=== PATIENT | female | born 1935 | race Caucasian/White ===

== ENCOUNTER 2017-12-17 03:23 | Emergency (ER) | payer MEDICARE, OTHER ==
[2017-12-17 03:56] LABS: #Eosinphils 0.1 thou/uL (0.0-0.7); #Lymphocytes 1.4 thou/uL (1.20-3.40); #Monocytes 0.4 thou/uL (0.11-0.59); #Neutrophils 6.4 thou/uL (1.40-6.50); %Basophils 0.3 % (0.0-1.0); %Eosinophils 0.8 % (0.0-10.0); %Lymphocytes 17.3 % (21.0-51.0); %Monocytes 4.3 % (0.0-10.0); %Neutrophils 77.4 % (42.0-75.0); Hemoglobin 10.3 g/dL (12.0-16.0); Mean Corpuscular HGB CONC 33.1 g/dL (32.0-36.0); Mean Corpuscular Hemoglobin 30.6 pg (27.0-31.0); Mean Corpuscular Volume 92.4 fl (81.0-99.0); Mean Platelet Volume 7.8 fL (7.4-10.4); Platelet Count 159 thou/uL (130-400); RBC Distribution Width 12.6 % (11.5-14.5); Red Blood Cell (RBC) Count 3.37 mill/uL (4.20-5.40); White Blood Cell (WBC) Count 8.3 thou/uL (4.8-10.8)
[2017-12-17 04:21] LABS: CKMB 2.7 ng/mL (0-6.6); Troponin I 0.015 ng/mL (< 0.028)
[2017-12-17 04:24] LABS: ALT (SGPT) 19 U/L (8-55); AST (SGOT) 38 U/L (5-34); Albumin 3.6 g/dL (3.4-4.8); Alkaline Phosphatase 108 U/L (40-150); Anion Gap 14 mmol/L (10-20); BUN (Urea Nitrogen) 35 mg/dL (9.8-20.1); Bilirubin, Total 0.2 mg/dL (0.2-1.2); Calc. Creatinine Clearance 0 mL/min (70-130); Calcium 9.9 mg/dL (7.8-10.44); Carbon Dioxide 24 mmol/L (23-31); Chloride 105 mmol/L (98-107); Estimated GFR-MDRD 50; Globulin 3.4 g/dL (2.4-3.5); Glucose 168 mg/dL (83-110); Lipase 31 U/L (8-78); Potassium 4.5 mmol/L (3.5-5.1); Sodium 138 mmol/L (136-145)
[2017-12-17] MEDS ORDERED: Ziprasidone 20 MG VIAL ONE (04:46)
[2017-12-17] MEDS ORDERED: Water For Inject, Bacteriostat 30 ML ONE (04:46)
--- NOTE | 2017-12-17 08:02 | RAD ---
ABDOMEN 2 VIEWS WITH 1 VIEW CHEST: Date: )12/17/17 HISTORY: Chest and abdominal pain. COMPARISON: None. FINDINGS: Lungs are slightly hyperinflated. There is some scarring in the lung bases. No pneumothorax. Dense ca lcification of the aorta. Cardiac silhouette is within normal limits. No displaced rib fracture. On the decubitus view, there is no free air under the peritoneal lining. No dilated air-filled loops of large or small bowel. There appears to be a calcified aortic aneurysm, infrarenal. IMPRESSION: 1. No acute intrathoracic or intraabdominal abnormality. 2. Possible splenomegaly. 3. Calcified aortic aneurysm. POS: [facility]
--- NOTE | 2017-12-18 18:15 | EKG ---
Test Reason : Blood Pressure : / mmHG Vent. Rate : 093 BPM Atrial Rate : 093 BPM P-R Int : 148 ms QRS Dur : 122 ms QT Int : 402 ms P-R-T Axes : 006 -85 057 degrees QTc Int : 499 ms Sinus rhythm with sinus arrhythmia Left axis deviation Anterior infarct , age undetermined Abnormal ECG Confirmed by MAHENDRA SHELTON D.O. ([id number]), editorial manager CHAD LOUIS ([id number]) on 12/18/2017 6:14:53 PM Referred By: Confirmed By:MAHENDRA SHELTON D.O.
== END 2017-12-17 05:50 | disposition home or self-care (01) ==
LOC: ERS 03:23
DX: R45.1 Restlessness and agitation (principal); E78.5 Hyperlipidemia, unspecified; E11.9 Type 2 diabetes mellitus without complications; I10 Essential (primary) hypertension; M19.90 Unspecified osteoarthritis, unspecified site; F31.9 Bipolar disorder, unspecified; F20.9 Schizophrenia, unspecified; Z79.82 Long term (current) use of aspirin; Z79.899 Other long term (current) drug therapy
CPT/HCPCS: 36415; 74022; 80053; 82553; 83690; 84484; 85025; 93005; 96372; J3486

== ENCOUNTER 2017-12-23 20:40 | Inpatient (IN) | payer MEDICARE, MEDICAID ==
[2017-12-23 21:42] LABS: Bilirubin Negative (Negative); Blood, Urine Negative (Negative); Clarity CLOUDY (Clear); Glucose, Urine (Dipstick) Negative (Negative); Leukocyte Negative (Negative); Nitrite Negative (Negative); Protein, Urine (Dipstick) Negative (Neg-Trace); Specific Gravity, Urine 1.026 (1.002-1.036); Urobilinogen 0.2 mg/dL (0.2-1.0); pH, Urine 5.5 (5.0-9.0)
[2017-12-23 22:14] LABS: #Lymphocytes 2.5 thou/uL (1.20-3.40); #Monocytes 0.7 thou/uL (0.11-0.59); #Neutrophils 9.3 thou/uL (1.40-6.50); %Basophils 0.2 % (0.0-1.0); %Eosinophils 0.3 % (0.0-10.0); %Lymphocytes 19.9 % (21.0-51.0); %Monocytes 5.3 % (0.0-10.0); %Neutrophils 74.4 % (42.0-75.0); Hemoglobin 10.3 g/dL (12.0-16.0); Mean Corpuscular HGB CONC 31.9 g/dL (32.0-36.0); Mean Corpuscular Hemoglobin 30.1 pg (27.0-31.0); Mean Corpuscular Volume 94.4 fl (81.0-99.0); Mean Platelet Volume 8.2 fL (7.4-10.4); Platelet Count 185 thou/uL (130-400); RBC Distribution Width 13.3 % (11.5-14.5); Red Blood Cell (RBC) Count 3.41 mill/uL (4.20-5.40); White Blood Cell (WBC) Count 12.5 thou/uL (4.8-10.8)
[2017-12-23 22:27] LABS: ALT (SGPT) 7 U/L (8-55); AST (SGOT) 11 U/L (5-34); Albumin 3.5 g/dL (3.4-4.8); Alkaline Phosphatase 89 U/L (40-150); Anion Gap 14 mmol/L (10-20); BUN (Urea Nitrogen) 28 mg/dL (9.8-20.1); Bilirubin, Total 0.5 mg/dL (0.2-1.2); Calc. Creatinine Clearance 0 mL/min (70-130); Carbon Dioxide 22 mmol/L (23-31); Chloride 109 mmol/L (98-107); Estimated GFR-MDRD 45; Glucose 161 mg/dL (83-110); Potassium 4.3 mmol/L (3.5-5.1); Protein, Total 6.5 g/dL (6.0-8.3); Sodium 141 mmol/L (136-145)
[2017-12-23 22:32] LABS: CKMB 0.6 ng/mL (0-6.6); Troponin I 0.023 ng/mL (< 0.028)
--- NOTE | 2017-12-23 22:35 | RAD ---
CHEST ONE VIEW: 12/23/17 HISTORY: 82-year-old female with altered mental status. Fever to 101.5. Monitor leads overlie the chest. There are some questionable minimal parenchymal changes in the later al aspect of the right lower lobe which appear to be new when compared to the prior study of 12/17/17. This could represent some minimal developing pneumonia or pneumonitis. Heart size is within normal l imits. Atherosclerosis of the aorta. Biapical pleural thickening. Minimal bilateral costophrenic angl e blunting. IMPRESSION: Possible minimal or early parenchymal change in the lateral aspect of the right lower lobe which coul d represent some minimal early pneumonia. Stable bilateral costophrenic angle blunting. Atheroscleros is of the aorta with some ectasia. Stable biapical pleural thickening. No evidence for overt edema. POS: [facility]
[2017-12-24] MEDS ORDERED: Ondansetron ODT 4 MG TAB SL PRN (01:27)
[2017-12-24] MEDS ORDERED: Acetaminophen 325 MG TAB PO PRN (01:27)
[2017-12-24] MEDS ORDERED: Ondansetron HCl/PF 4 MG/2 ML Vial IVP PRN (01:27)
[2017-12-24] MEDS ORDERED: Furosemide 20 MG TAB PO PRN (02:04)
[2017-12-24] MEDS: Sodium Chloride 0.9% 1,000 ML IV SCH ×3 (02:13→23:25)
[2017-12-24] MEDS ORDERED: Dextrose 50% Abboject 50 ML SYRINGE SLOW IVP PRN (02:23)
[2017-12-24] MEDS ORDERED: Dextrose 5% in Water 1,000 ML IV PRN (02:23)
--- NOTE | 2017-12-24 04:46 | HP ---
DATE OF ADMISSION: 12/23/2017 ADMITTING PHYSICIAN: Dr. Herson Diaz. PRIMARY CARE PHYSICIAN: Dr. Vo. CHIEF COMPLAINT: Altered mental status and hypoxemia. HISTORY OF PRESENT ILLNESS: Patient is an 82-year-old female who resides in [facility]. She has baseline dementia and bipolar disease. Patient was brought in after the fpc staff n oticed that she seemed confused. EMS was notified. When they arrived to evaluate the patient, she r eportedly had an O2 saturation of 88% and a temperature of 101.4 degrees Fahrenheit. Patient denies any complaints during my interview, although once again her mental status is somewhat altered and she has baseline mental illness. REVIEW OF SYSTEMS: The following complete review of systems was negative, unless otherwise mentioned in the HPI or below: Constitutional: Weight loss or gain, sense of well-being, ability to conduct usual activities, exercise tolerance. Skin/Breast: Rash, itching, changes in hair growth or loss, n ail changes, breast lumps, tenderness, swelling, nipple discharge. Eyes: Vision, double vision, tea ring, blind spots, pain. ENT/Mouth: Headaches (location, time of onset, duration, precipitating fac tors), vertigo, lightheadedness, injury. Vision, double vision, tearing, blind spots, pain, nose blee ding, colds, obstruction, discharge, dental difficulties, gingival bleeding, dentures, neck stiffness , pain, tenderness, masses in thyroid or other areas. Cardiovascular: Precordial pain, substernal d istress, palpitations, syncope, dyspnea on exertion, orthopnea, nocturnal paroxysmal dyspnea, edema, cyanosis, hypertension, heart murmurs, varicosities, phlebitis, claudication. Respiratory: Pain, sh ortness of breath, wheezing, stridor, cough, hemoptysis, fever or night sweats. Gastrointestinal: P oor appetite, dysphagia, indigestion, abdominal pain, heartburn, eructation, nausea, vomiting, hemate mesis, jaundice, constipation, or diarrhea, abnormal stools (dany-colored, tarry, bloody, greasy, fou l smelling), flatulence, hemorrhoids, recent changes in bowel habits. Genitourinary: Urgency, frequ ency, dysuria, nocturia, hematuria, polyuria, oliguria, unusual (or change in) color of urine, stones , hesitancy, change in size of stream, dribbling, acute retention or incontinence, libido, potency. Musculoskeletal: Pain, swelling, redness or heat of muscles or joints, limitation, of motion, muscul ar weakness, atrophy, cramps. Neurologic/Psychiatric: Convulsions, paralyzes, tremor, incoordinatio n, paresthesias, difficulties with memory of speech, sensory or motor disturbances, or muscular coord ination (ataxia, tremor), emotional problems, anxiety, depression, previous psychiatric care, unusual perceptions, hallucinations. Allergy/Immunologic: Skin rash, anemia, bleeding tendency, polydipsia , polyuria, intolerance to heat or cold. PAST MEDICAL HISTORY: Dyslipidemia, vitamin D deficiency, legally blind, lupus, diabetes type 2, hyp ertension, osteoarthritis, history of falls, esophagitis, dyspepsia, insomnia. PSYCHIATRIC HISTORY: Bipolar disease, schizophrenia, depression. SOCIAL HISTORY: Patient lives in [facility]. No drugs. No alcohol, no tobacco. FAMILY HISTORY: Noncontributory to this case. HOME MEDICATIONS: Include Ditropan 5 mg once a day, Namenda 10 mg b.i.d., Risperdal 25 mg monthly, t razodone 200 mg once a day, aspirin 81 mg once a day, lactobacillus acidophilus 1 capsule per day, ir on sulfate 325 once a day, vitamin B12 of 5000 mcg every day, Ativan 0.5 mg once a day, multivitamin once a day, Colace 100 once a day, folic acid 0.4 mg once a day, Lasix 20 mg as needed, potassium 10 mEq daily, Remeron 15 mg 1/2 tablet once a day, Seroquel 200 mg at bedtime. ALLERGIES: Patient is known to be allergic to PENICILLIN, STRAWBERRIES. PHYSICAL EXAMINATION: VITAL SIGNS: Blood pressure 119/73, pulse 96, respirations 18, temperature 99.0, satting 95% on room air. GENERAL: She is in no acute distress, pleasant, cooperative, pleasantly demented, oriented to person only responsive to verbal stimuli. HEAD: Normocephalic, atraumatic. EYE: Extraocular muscles intact. Conjunctivae normal. Sclerae normal. ENT: Normal external ear exam. Oral mucosa dry with discharge and dry mucous. NECK: Supple, trachea midline. RESPIRATORY: Breath sounds diminished in the lower lobes. No rhonchi, no wheezes. ABDOMEN: Nontender, nondistended. EXTREMITIES: No clubbing, cyanosis, or edema. LABORATORY DATA AND IMAGES: CBC shows a white count of 12.5, hemoglobin 10.3, hematocrit 32.2, plate lets 185. Chemistry shows sodium 141, potassium 4.3, chloride 109, CO2 of 22, BUN 28, creatinine 1.1 5, glucose 161, lactic acid 1.2. CK-MB 0.6, troponin I 0.02. BNP 64.4, albumin 3.5. Urinalysis yel low, cloudy, negative leukocytes, negative nitrites. ASSESSMENT AND PLAN: 1. Altered mental status. 2. Pneumonia. 3. Dementia. 4. Bipolar disease. PLAN: Patient will be admitted to medical kaur. She will be treated with the appropriate antimicrob ials for her community-acquired pneumonia. We will provide fluid resuscitation as needed. We will c ontinue her home medication regimen to manage her chronic medical conditions. VTE prophylaxis will b e on Lovenox.
[2017-12-24 05:17] VITALS: BMI 23.2
[2017-12-24] MEDS: HumaLOG 300 UNITS/3 ML VIAL SC PRN (06:23)
[2017-12-24] MEDS: Folic Acid 1 MG TAB PO SCH (08:28)
[2017-12-24] MEDS: Potassium Chloride 10 MEQ TAB PO SCH (08:28)
[2017-12-24] MEDS: Aspirin 81 mg Enteric Coated Tablet PO SCH (08:29)
[2017-12-24] MEDS: Oxybutynin ER 5 MG TAB PO SCH (08:29)
[2017-12-24] MEDS: Ferrous Sulfate 325 MG TAB PO SCH (08:29)
[2017-12-24] MEDS: traZODone HCl 150 MG TAB PO SCH ×2 (08:29→21:31)
[2017-12-24] MEDS: Cyanocobalamin (Vitamin B-12) 1,000 MCG TAB PO SCH (08:30)
[2017-12-24] MEDS: Lorazepam 0.5 MG TAB PO SCH ×2 (08:30→21:32)
[2017-12-24] MEDS: Lactinex Tablet PO SCH (08:31)
[2017-12-24] MEDS: Docusate 100 MG CAP PO SCH (08:31)
[2017-12-24] MEDS: Ascorbic Acid 500 mg Chewable Tablet PO SCH (08:31)
[2017-12-24] MEDS: Enoxaparin Sodium 30 MG/0.3 ML SYRINGE SC SCH (08:32)
[2017-12-24] MEDS ORDERED: Prevnar 13-Val Conj/PF 0.5 ML SYRINGE IM ONE (09:00)
--- NOTE | 2017-12-24 15:22 | PQF ---
CLINICAL DOCUMENTATION IMPROVEMENT CLARIFICATION FORM: ICD-10 Updated PLEASE DO AN ADDENDUM TO THE PROGRESS NOTE WITH ANY DOCUMENTATION UPDATES OR ADDITIONS AND CARRY THROUGH TO DC SUMMARY. THANK YOU. DATE: 12/24/17 ATTN: DR. MCKINNEY Please exercise your independent, professional judgment in responding to the clarification form. Clinical indicators are provided on the bottom of this form for your review Please check appropriate box(es): [ ] Sepsis due to: (Pna, UTI, gangrenous gall bladder, etc.) Due to: [ ] Device (please specify) [ ] Implant [ ] Graft [ ] Infusion [ ] SIRS due to non-infectious process (please specify etiology) [ ] with organ dysfunction [ ] without organ dysfunction [ ] Severe sepsis with acute organ dysfunction of: (Examples: respiratory failure, encephalopathy, acute kidney failure, other) [ ] Septic Shock [ ] Localized infection without sepsis [ ] Other diagnosis [ ] Unable to determine In addition, please specify: Present on Admission (POA): [ ] Yes [ ] No [ ] Unable to determine For continuity of documentation, please document condition throughout progress notes and discharge summary. Thank You. CLINICAL INDICATORS - SIGNS / SYMPTOMS / LABS ALTERED MENTAL STATUS TEMP 101.4 (ER ER REPORT) WBC 12.5 PULSE 101 RISKS: PNEUMONIA TREATMENT: IV LEVAQUIN (ER) IV VANCOMYCIN (ER) SERIAL LABS (This form is maintained as a part of the permanent medical record) 2014 [employer]. All Rights Reserved [email or web address] Office: [phone] [facility]
[2017-12-24] MEDS: Mirtazapine 15 MG TAB PO SCH (21:31)
[2017-12-24] MEDS: traZODone HCl 50 MG TAB PO SCH (21:32)
[2017-12-24] MEDS: Doxycycline 100 MG CAP PO SCH (21:34)
[2017-12-25] MEDS ORDERED: Acetaminophen 325 MG TAB PO PRN (02:56)
[2017-12-25] MEDS: Saccharomyces boulardii 250 MG CAP PO SCH (08:30)
[2017-12-25] MEDS: Cyanocobalamin (Vitamin B-12) 1,000 MCG TAB PO SCH (08:30)
[2017-12-25] MEDS: Ferrous Sulfate 325 MG TAB PO SCH (08:31)
[2017-12-25] MEDS: Folic Acid 1 MG TAB PO SCH (08:32)
[2017-12-25] MEDS: traZODone HCl 150 MG TAB PO SCH ×2 (08:32→21:22)
[2017-12-25] MEDS: Potassium Chloride 10 MEQ TAB PO SCH (08:33)
[2017-12-25] MEDS: Ascorbic Acid 500 mg Chewable Tablet PO SCH (08:34)
[2017-12-25] MEDS: Lactinex Tablet PO SCH (08:34)
[2017-12-25] MEDS: Aspirin 81 mg Enteric Coated Tablet PO SCH (08:34)
[2017-12-25] MEDS: Lorazepam 0.5 MG TAB PO SCH ×2 (08:34→21:39)
[2017-12-25] MEDS: Doxycycline 100 MG CAP PO SCH (08:36)
[2017-12-25] MEDS: Enoxaparin Sodium 30 MG/0.3 ML SYRINGE SC SCH (08:56)
[2017-12-25] MEDS: Docusate 100 MG CAP PO SCH (08:56)
[2017-12-25 10:31] LABS: #Lymphocytes 1.5 thou/uL (1.20-3.40); #Monocytes 0.3 thou/uL (0.11-0.59); #Neutrophils 6.1 thou/uL (1.40-6.50); %Basophils 0.2 % (0.0-1.0); %Eosinophils 0.6 % (0.0-10.0); %Lymphocytes 18.5 % (21.0-51.0); %Monocytes 4.2 % (0.0-10.0); %Neutrophils 76.5 % (42.0-75.0); Hemoglobin 9.1 g/dL (12.0-16.0); Mean Corpuscular HGB CONC 32.1 g/dL (32.0-36.0); Mean Corpuscular Hemoglobin 30.4 pg (27.0-31.0); Mean Corpuscular Volume 94.8 fl (81.0-99.0); Mean Platelet Volume 8.3 fL (7.4-10.4); Platelet Count 147 thou/uL (130-400); RBC Distribution Width 13.1 % (11.5-14.5); White Blood Cell (WBC) Count 7.9 thou/uL (4.8-10.8)
[2017-12-25 10:42] LABS: Albumin 3.1 g/dL (3.4-4.8); Anion Gap 11 mmol/L (10-20); BUN (Urea Nitrogen) 17 mg/dL (9.8-20.1); BUN/Creatinine Ratio 14.91; Calc. Creatinine Clearance 41 mL/min (70-130); Carbon Dioxide 24 mmol/L (23-31); Chloride 108 mmol/L (98-107); Estimated GFR-MDRD 46; Glucose 274 mg/dL (83-110); Magnesium 1.7 mg/dL (1.6-2.6); Potassium 4.2 mmol/L (3.5-5.1); Sodium 139 mmol/L (136-145)
[2017-12-25 10:48] LABS: Phosphorus 1.9 mg/dL (2.3-4.7)
[2017-12-25] MEDS: Oxybutynin ER 5 MG TAB PO SCH (10:52)
--- NOTE | 2017-12-25 12:29 | RAD ---
CHEST 1 VIEW: HISTORY: Dyspnea. Pneumonia. Followup. COMPARISON: 12/23/17. FINDINGS: Cardiac silhouette is magnified by projection. The patient is rotated leftward. Infiltrate at the r ight base has progressed since the prior study. No evidence of pneumothorax. IMPRESSION: Worsening right basilar infiltrate. Continued radiographic followup after medical treatment is keli andersd. POS: [facility]
[2017-12-25] MEDS: Sodium Chloride 0.9% 1,000 ML IV SCH (13:13)
--- NOTE | 2017-12-25 16:03 | PDOC.PN ---
- Subjective Encounter Start Date: 12/25/17 Encounter Start Time: 16:01 Patient seen and examined. No new complaints. No overnight events. Agitated. - Objective MAR Reviewed: Yes Vital Signs & Weight: Vital Signs (12 hours) Temp Pulse Resp BP Pulse Ox 12/25/17 08:00 99.1 F 70 16 98 12/25/17 07:42 99.1 F 70 16 148/74 H 98 I&O: 12/24/17 12/25/17 12/26/17 06:59 06:59 06:59 Intake Total 1200 Balance 1200 Result Diagrams: 12/25/17 10:03 12/25/17 10:03 Additional Labs: Accuchecks 12/25/17 12/24/17 12/24/17 12:04 20:49 16:27 POC Glucose 179 H 194 H 133 H Radiology Reviewed by me: Yes (CXR - worse Rt basilar infiltrate) EKG Reviewed by me: Yes (SR, LBBB) Phys Exam - Physical Examination Constitutional: NAD Confused Respiratory: no wheezing Rt basilar rales with scat rhonchi, Symmetrical Cardiovascular: RRR, no rub no heaves/pulsations Gastrointestinal: soft, non-tender, no distention, positive bowel sounds Musculoskeletal: no edema Neurological: moves all 4 limbs Neuro/Psych - cannot assess due to sedation Dx/Plan - Plan plan discussed w/ family (sister), DVT proph w/lovenox, DVT proph w/SCDs IMPRESSION: 1. Sepsis with acute organ dysfunction due to Pneumonia ?Pneumococcus vs Aspiration 2. Toxic Metabolic Encephalopathy 3. Alzheimer dementia 4. Swallow dysfunction 5. Dehydration 6. 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 * Add nebs/Pulmicort * Replace Phosphorus * Cont sliding scale Review of Systems - Review of Systems Other: Cannot obtain due to dementia - Medications/Allergies Allergies/Adverse Reactions: Allergies Allergy/AdvReac Type Severity Reaction Status Date / Time strawberry [[place]] Allergy Unknown Verified 12/24/17 01:55 Penicillins Allergy Verified 12/24/17 01:55 Medications: Current Medications Acetaminophen (Tylenol) 650 mg PO Q6H PRN PRN Reason: Fever >101 Acidophilus (Floranex) 1 tab PO DAILY [facility] Last Admin: 12/25/17 08:34 Dose: 1 tab Ascorbic Acid (Vitamin C) 500 mg PO DAILY [facility] Last Admin: 12/25/17 08:34 Dose: 500 mg Aspirin (Ecotrin) 81 mg PO DAILY [facility] Last Admin: 12/25/17 08:34 Dose: 81 mg Cholecalciferol (Vitamin D3) 5,000 units PO DAILY [facility] Last Admin: 12/25/17 08:34 Dose: 5,000 units Cyanocobalamin (Vitamin B-12) 500 mcg PO DAILY [facility] Last Admin: 12/25/17 08:30 Dose: 500 mcg Dextrose/Water (Dextrose 50%) 25 gm SLOW IVP PRN PRN PRN Reason: Hypoglycemia Docusate Sodium (Colace) 100 mg PO DAILY [facility] Last Admin: 12/25/17 08:56 Dose: Not Given Doxycycline Hyclate (Vibramycin) 100 mg PO BID [facility] Last Admin: 12/25/17 08:36 Dose: 100 mg Enoxaparin Sodium (Lovenox) 30 mg SC 0900 [facility] Last Admin: 12/25/17 08:56 Dose: Not Given Ferrous Sulfate (Feosol) 325 mg PO QAM-[facility] Last Admin: 12/25/17 08:31 Dose: 325 mg Folic Acid (Folvite) 0.5 mg PO DAILY [facility] Last Admin: 12/25/17 08:32 Dose: 0.5 mg Furosemide (Lasix) 20 mg PO DAILY PRN PRN Reason: Edema Glucagon (Glucagon) 1 mg IM PRN PRN PRN Reason: Hypoglycemia Dextrose/Water (D5w) 1,000 mls @ 0 mls/hr IV .Q0M PRN; As Directed PRN Reason: Hypoglycemia Levofloxacin 500 mg/ Device 100 mls @ 100 mls/hr IVPB 2300 [facility] Last Admin: 12/24/17 23:24 Dose: 100 mls Sodium Chloride (Normal Saline 0.9%) 1,000 mls @ 75 mls/hr IV .[id number] [facility] Stop: 12/26/17 17:31 Last Admin: 12/25/17 13:13 Dose: 1,000 mls Insulin Human Lispro (Humalog) 0 units SC .MILD SLIDING SCALE PRN PRN Reason: Mild Correctional Scale Last Admin: 12/24/17 06:23 Dose: 2 unit Lorazepam (Ativan) 0.5 mg PO BID [facility] Last Admin: 12/25/17 08:34 Dose: 0.5 mg Memantine (Namenda) 10 mg PO BID [facility] Last Admin: 12/25/17 08:35 Dose: 10 mg Mirtazapine (Remeron) 15 mg PO HS [facility] Last Admin: 12/24/17 21:31 Dose: 15 mg Miscellaneous Medication (Pharmacy To Dose) 1 each IVPB ONE PRN PRN Reason: Pharmacy to dose Stop: 01/23/18 12:51 Non-Formulary Medication (Risperidone Microspheres [Risperdal Consta]) 25 mg IM ONE [facility] Stop: 01/06/18 09:01 Non-Formulary Medication (Risperidone Microspheres [Risperdal Consta]) 25 mg IM ONE [facility] Stop: 01/20/18 09:01 Oxybutynin Chloride (Ditropan Xl) 5 mg PO DAILY [facility] Last Admin: 12/25/17 10:52 Dose: Not Given Phosphorus (Kphos Neutral) 250 mg PO BID-[facility] Quetiapine Fumarate (Seroquel) 200 mg PO [facility] Last Admin: 12/24/17 21:31 Dose: 200 mg Saccharomyces Boulardii (Florastor) 250 mg PO DAILY [facility] Last Admin: 12/25/17 08:30 Dose: 250 mg Trazodone HCl (Desyrel) 75 mg PO BID [facility] Last Admin: 12/25/17 08:32 Dose: 75 mg Trazodone HCl (Desyrel) 200 mg PO [facility] Last Admin: 12/24/17 21:32 Dose: Not Given
[2017-12-25] MEDS ORDERED: Ziprasidone 20 MG VIAL IM PRN (16:04)
[2017-12-25] MEDS: metroNIDAZOLE 500 MG in Premix Bag 1 BAG IVPB SCH (16:35)
[2017-12-25] MEDS: K-Phos Neutral 250 MG TAB PO SCH (16:41)
[2017-12-25] MEDS: Budesonide 0.5 MG/2 ML NEB INH SCH (20:11)
[2017-12-25] MEDS: Mirtazapine 15 MG TAB PO SCH (21:23)
[2017-12-25] MEDS: traZODone HCl 50 MG TAB PO SCH (21:40)
[2017-12-26] MEDS: metroNIDAZOLE 500 MG in Premix Bag 1 BAG IVPB SCH ×3 (01:25→17:39)
[2017-12-26] MEDS: Sodium Chloride 0.9% 1,000 ML IV SCH ×2 (05:51→17:45)
[2017-12-26] MEDS: HumaLOG 300 UNITS/3 ML VIAL SC PRN (05:52)
[2017-12-26] MEDS: Budesonide 0.5 MG/2 ML NEB INH SCH ×2 (07:13→19:00)
[2017-12-26] MEDS: Cyanocobalamin (Vitamin B-12) 1,000 MCG TAB PO SCH (08:35)
[2017-12-26] MEDS: Ascorbic Acid 500 mg Chewable Tablet PO SCH (08:35)
[2017-12-26] MEDS: traZODone HCl 150 MG TAB PO SCH ×2 (08:36→21:38)
[2017-12-26] MEDS: Folic Acid 1 MG TAB PO SCH (08:37)
[2017-12-26] MEDS: Lorazepam 0.5 MG TAB PO SCH ×2 (08:37→21:37)
[2017-12-26] MEDS: Aspirin 81 mg Enteric Coated Tablet PO SCH (08:38)
[2017-12-26] MEDS: Saccharomyces boulardii 250 MG CAP PO SCH (08:38)
[2017-12-26] MEDS: Ferrous Sulfate 325 MG TAB PO SCH (08:38)
[2017-12-26] MEDS: Oxybutynin ER 5 MG TAB PO SCH (08:38)
[2017-12-26] MEDS: Lactinex Tablet PO SCH (08:38)
[2017-12-26] MEDS: K-Phos Neutral 250 MG TAB PO SCH ×2 (08:40→17:44)
[2017-12-26] MEDS: Docusate 100 MG CAP PO SCH (08:40)
[2017-12-26] MEDS: Enoxaparin Sodium 30 MG/0.3 ML SYRINGE SC SCH (08:40)
--- NOTE | 2017-12-26 21:16 | PDOC.PN ---
- Subjective Encounter Start Date: 12/26/17 Encounter Start Time: 11:30 Patient seen and examined. No new complaints. No overnight events - Objective Resuscitation Status: Resuscitation Status DNR:Do Not Resuscitate MAR Reviewed: Yes Vital Signs & Weight: Vital Signs (12 hours) Temp Pulse Resp BP Pulse Ox 12/26/17 20:00 98.7 F 94 20 148/53 H 95 12/26/17 19:00 76 16 94 L I&O: 12/25/17 12/26/17 12/27/17 06:59 06:59 06:59 Intake Total 1200 1310 Balance 1200 1310 Result Diagrams: 12/25/17 10:03 12/25/17 10:03 Additional Labs: Accuchecks 12/26/17 12/26/17 12/26/17 20:40 16:28 11:56 POC Glucose 267 H 122 H 229 H 12/26/17 12/25/17 05:20 21:14 POC Glucose 158 H 198 H Phys Exam - Physical Examination Constitutional: NAD Respiratory: no wheezing, no rhonchi Coarse BS on Rt Cardiovascular: RRR, no rub Gastrointestinal: soft, non-tender, positive bowel sounds Musculoskeletal: no edema Neurological: moves all 4 limbs Dx/Plan - Plan DVT proph w/lovenox, DVT proph w/SCDs IMPRESSION: 1. Sepsis with acute organ dysfunction due to Pneumonia ?Pneumococcus vs Aspiration 2. Toxic Metabolic Encephalopathy 3. Alzheimer dementia 4. Swallow dysfunction - on modified diet 5. Dehydration - on IV fluids 6. 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 * Cont nebs/Pulmicort * DC in AM if stable/afebrile * Cont sliding scale Review of Systems - Review of Systems Other: Cannot obtain due to current mentation - Medications/Allergies Allergies/Adverse Reactions: Allergies Allergy/AdvReac Type Severity Reaction Status Date / Time strawberry [[place]] Allergy Unknown Verified 12/24/17 01:55 Penicillins Allergy Verified 12/24/17 01:55 Medications: Current Medications Acetaminophen (Tylenol) 650 mg PO Q6H PRN PRN Reason: Fever >101 Acidophilus (Floranex) 1 tab PO DAILY [facility] Last Admin: 12/26/17 08:38 Dose: 1 tab Albuterol/Ipratropium (Duoneb) 3 ml NEB [id number] [facility] Last Admin: 12/26/17 19:01 Dose: 3 ml Albuterol/Ipratropium (Duoneb) 3 ml NEB [id number] PRN PRN Reason: SOB &/or Wheezing Ascorbic Acid (Vitamin C) 500 mg PO DAILY [facility] Last Admin: 12/26/17 08:35 Dose: 500 mg Aspirin (Ecotrin) 81 mg PO DAILY [facility] Last Admin: 12/26/17 08:38 Dose: 81 mg Budesonide (Pulmicort Neb Solution) 0.5 mg INH BID-RT [facility] Last Admin: 12/26/17 19:00 Dose: 0.5 mg Cholecalciferol (Vitamin D3) 5,000 units PO DAILY [facility] Last Admin: 12/26/17 08:37 Dose: 5,000 units Cyanocobalamin (Vitamin B-12) 500 mcg PO DAILY [facility] Last Admin: 12/26/17 08:35 Dose: 500 mcg Dextrose/Water (Dextrose 50%) 25 gm SLOW IVP PRN PRN PRN Reason: Hypoglycemia Docusate Sodium (Colace) 100 mg PO DAILY [facility] Last Admin: 12/26/17 08:40 Dose: Not Given Ferrous Sulfate (Feosol) 325 mg PO QAM-WM [facility] Last Admin: 12/26/17 08:38 Dose: 325 mg Folic Acid (Folvite) 0.5 mg PO DAILY [facility] Last Admin: 12/26/17 08:37 Dose: 0.5 mg Furosemide (Lasix) 20 mg PO DAILY PRN PRN Reason: Edema Glucagon (Glucagon) 1 mg IM PRN PRN PRN Reason: Hypoglycemia Dextrose/Water (D5w) 1,000 mls @ 0 mls/hr IV .Q0M PRN; As Directed PRN Reason: Hypoglycemia Levofloxacin 500 mg/ Device 100 mls @ 100 mls/hr IVPB 2300 [facility] Last Admin: 12/25/17 23:15 Dose: 100 mls Metronidazole 500 mg/ Device 100 mls @ 100 mls/hr IVPB 0100,0900,1700 [facility] Last Admin: 12/26/17 17:39 Dose: 100 mls Insulin Human Lispro (Humalog) 0 units SC .MILD SLIDING SCALE PRN PRN Reason: Mild Correctional Scale Last Admin: 12/26/17 05:52 Dose: 2 unit Lorazepam (Ativan) 0.5 mg PO BID [facility] Last Admin: 12/26/17 08:37 Dose: 0.5 mg Memantine (Namenda) 10 mg PO BID [facility] Last Admin: 12/26/17 08:38 Dose: 10 mg Mirtazapine (Remeron) 15 mg PO [facility] Last Admin: 12/25/17 21:23 Dose: 15 mg Miscellaneous Medication (Pharmacy To Dose) 1 each IVPB ONE PRN PRN Reason: Pharmacy to dose Stop: 01/23/18 12:51 Non-Formulary Medication (Risperidone Microspheres [Risperdal Consta]) 25 mg IM ONE [facility] Stop: 01/06/18 09:01 Non-Formulary Medication (Risperidone Microspheres [Risperdal Consta]) 25 mg IM ONE [facility] Stop: 01/20/18 09:01 Oxybutynin Chloride (Ditropan Xl) 5 mg PO DAILY [facility] Last Admin: 12/26/17 08:38 Dose: 5 mg Phosphorus (Kphos Neutral) 250 mg PO BID-[facility] Last Admin: 12/26/17 17:44 Dose: 250 mg Quetiapine Fumarate (Seroquel) 200 mg PO [facility] Last Admin: 12/25/17 21:23 Dose: 200 mg Saccharomyces Boulardii (Florastor) 250 mg PO DAILY [facility] Last Admin: 12/26/17 08:38 Dose: 250 mg Trazodone HCl (Desyrel) 75 mg PO BID [facility] Last Admin: 12/26/17 08:36 Dose: 75 mg Trazodone HCl (Desyrel) 200 mg PO [facility] Last Admin: 12/25/17 21:40 Dose: 200 mg Ziprasidone (Geodon) 10 mg IM Q6H PRN PRN Reason: Agitation Last Admin: 12/25/17 16:39 Dose: 10 mg
[2017-12-26] MEDS: traZODone HCl 50 MG TAB PO SCH (21:38)
[2017-12-26] MEDS: Mirtazapine 15 MG TAB PO SCH (21:38)
[2017-12-27] MEDS: metroNIDAZOLE 500 MG in Premix Bag 1 BAG IVPB SCH ×2 (01:59→08:13)
[2017-12-27] MEDS: Budesonide 0.5 MG/2 ML NEB INH SCH (06:54)
[2017-12-27] MEDS: K-Phos Neutral 250 MG TAB PO SCH (08:15)
[2017-12-27] MEDS: Ferrous Sulfate 325 MG TAB PO SCH (08:15)
[2017-12-27] MEDS: Saccharomyces boulardii 250 MG CAP PO SCH (08:15)
[2017-12-27] MEDS: Lactinex Tablet PO SCH (08:15)
[2017-12-27] MEDS: traZODone HCl 150 MG TAB PO SCH (08:17)
[2017-12-27] MEDS: Ascorbic Acid 500 mg Chewable Tablet PO SCH (08:18)
[2017-12-27] MEDS: Oxybutynin ER 5 MG TAB PO SCH (08:19)
[2017-12-27] MEDS: Folic Acid 1 MG TAB PO SCH (08:19)
[2017-12-27] MEDS: Cyanocobalamin (Vitamin B-12) 1,000 MCG TAB PO SCH (08:19)
[2017-12-27] MEDS: Docusate 100 MG CAP PO SCH (08:20)
[2017-12-27] MEDS: Lorazepam 0.5 MG TAB PO SCH (08:20)
[2017-12-27] MEDS: Aspirin 81 mg Enteric Coated Tablet PO SCH (08:20)
[2017-12-27 16:01] VITALS: BP 104/59; TEMP 98.3
--- NOTE | 2017-12-27 19:22 | DIS ---
DATE OF ADMISSION: 12/23/2017 DATE OF DISCHARGE: 12/27/2017 DISCHARGE DISPOSITION: half-way. ALLERGIES: The patient is allergic to PENICILLIN and STRAWBERRIES. The patient was seen and examined on the day of discharge. Denies any new complaints. Overall, symp tomatically feels better. DISCHARGE MEDICATIONS: 1. Levaquin 500 mg daily for 5 days. 2. Flagyl 500 mg every 8 hourly for the next 5 days. 3. K-Phos 250 mg twice a day for 1 week. 4. Other home medications were resumed. DISCHARGE INSTRUCTIONS: 1. Repeat base met with phosphorus after 1 week is recommended. Primary care physician is advised t o follow. 2. Chest x-ray after 4 weeks is recommended. Primary care physician is advised to follow. INPATIENT CONSULTANTS: None. BRIEF HOSPITAL COURSE: The patient is an 82-year-old female skilled nursing resident with dementia, was brought to the hospital with altered mentation. Please refer to the history and physical dictated b ana Diaz on 12/23/2017 for further details. The patient was admitted to the medical floor with a diagnosis of toxic metabolic encephalopathy seco ndary to pneumonia, suspected aspiration. She was placed on Levaquin. A chest x-ray on admission sh owed possible early parenchymal changes in the right lower lobe. Repeat chest x-ray 48 hours later s howed worsening right basilar infiltrate. For this reason, Flagyl was added. The patient has been a febrile over the last 24 hours. She was also evaluated by Speech Therapy and her diet has been modif ied. She will continue antibiotics for another 5 days. No changes in her home medications were made . FINAL DIAGNOSES: 1. Sepsis with acute organ dysfunction secondary to pneumonia, suspected aspiration versus pneumococ cus. 2. Toxic metabolic encephalopathy. 3. Alzheimer dementia. 4. Swallow dysfunction, on modified diet. 5. Dehydration. The patient received IV fluids during this hospital stay. 6. Diabetes mellitus type 2. 7. Legal blindness. 8. Frequent falls. 9. Deconditioning. 10. Anxiety, depression, bipolar disorder. 11. Schizophrenia. 12. Chronic kidney disease stage 3. 13. Hypertension. 14. Hypophosphatemia. Phosphorus on the 3rd was 1.9. SIGNIFICANT LABORATORIES: 1. Urinalysis was negative. Creatinine on admission was 1.15 with a BUN of 21. The BUN normalized after 48 hours. 2. Lactic acid was 1.2. 3. Troponin was negative. 4. Influenzae A and B testing was negative. Please note blood cultures were not done on admission. Total time coordinating the discharge of this patient was 33 minutes.
[2018-01-06] MEDS ORDERED: RISPERIDONE MICROSPHERES 25 MG IM SCH (09:00)
[2018-01-20] MEDS ORDERED: RISPERIDONE MICROSPHERES 25 MG IM SCH (09:00)
== END 2017-12-27 16:50 | DRG 871 ==
LOC: ERS 20:40 → T4-B 23:12
PROVIDERS: ADMIT Internal Medicine Addiction Medicine; ATTEND Internal Medicine Addiction Medicine
DX: A41.9 Sepsis, unspecified organism (principal); J69.0 Pneumonitis due to inhalation of food and vomit; G93.41 Metabolic encephalopathy; J13 Pneumonia due to Streptococcus pneumoniae; R13.10 Dysphagia, unspecified; E83.39 Other disorders of phosphorus metabolism; G30.9 Alzheimer's disease, unspecified; N18.3 Chronic kidney disease, stage 3 (moderate); E86.0 Dehydration; F02.80 Dementia in other diseases classified elsewhere, unspecified severity, without behavioral disturbance, psychotic disturbance, mood disturbance, and anxiety; F20.9 Schizophrenia, unspecified; R65.20 Severe sepsis without septic shock; E55.9 Vitamin D deficiency, unspecified; Z66 Do not resuscitate; E78.5 Hyperlipidemia, unspecified; F31.9 Bipolar disorder, unspecified; M19.90 Unspecified osteoarthritis, unspecified site; H54.8 Legal blindness, as defined in USA; Z88.0 Allergy status to penicillin; Z91.018 Allergy to other foods; F41.9 Anxiety disorder, unspecified; I12.9 Hypertensive chronic kidney disease with stage 1 through stage 4 chronic kidney disease, or unspecified chronic kidney disease; Z91.81 History of falling
CPT/HCPCS: 36415; 36416; 51701; 71045; 80053; 80069; 81003; 82553; 83605; 83735; 83880; 84484; 85025; 90471; 90670; 93005; 94640; 96365; 96367; A4353; G0009; G8996-GN-CK; G8997-GN-CJ; J1650; J1956; J3370; J3486; J7620; J7626

== ENCOUNTER 2019-10-15 13:22 | Inpatient (IN) | payer MEDICARE, MEDICAID ==
[~2019-10-15 13:22] MED LIST: Iopamidol-370 76% 500 ML 1 ML ONE
--- NOTE | 2019-10-15 13:55 | RAD ---
PORTABLE UPRIGHT FRONTAL CHEST RADIOGRAPH: 10/15/2019 HISTORY: Altered mental status. Cough. Fever. COMPARISON: 12/25/2017 FINDINGS: The right lung appears clear. No pneumothorax is seen. There is hazy increased density in the left ba se with partial obscuration of the left hemidiaphragm, which may represent left basilar infiltrate or volume loss. There is atherosclerotic calcification of the thoracic aorta. IMPRESSION: Hazy nonspecific increased density in the left lung base, as detailed above. Recommend PA and lateral imaging of the chest. POS: [facility]
[2019-10-15 14:29] LABS: #Eosinphils 0.1 thou/uL (0.0-0.7); #Lymphocytes 2.5 thou/uL (1.20-3.40); #Monocytes 0.4 thou/uL (0.11-0.59); #Neutrophils 6.3 thou/uL (1.40-6.50); %Basophils 0.1 % (0.0-1.0); %Eosinophils 0.9 % (0.0-10.0); %Lymphocytes 26.8 % (21.0-51.0); %Monocytes 4.5 % (0.0-10.0); %Neutrophils 67.6 % (42.0-75.0); Hemoglobin 12.4 g/dL (12.0-16.0); Mean Corpuscular HGB CONC 33.1 g/dL (32.0-36.0); Mean Corpuscular Hemoglobin 31.2 pg (27.0-31.0); Mean Corpuscular Volume 94.3 fL (78.0-98.0); Mean Platelet Volume 8.3 fL (7.4-10.4); Platelet Count 152 thou/uL (130-400); RBC Distribution Width 12.3 % (11.5-14.5); Red Blood Cell (RBC) Count 3.98 mill/uL (4.20-5.40); White Blood Cell (WBC) Count 9.3 thou/uL (4.8-10.8)
[2019-10-15 14:54] LABS: ALT (SGPT) 8 U/L (8-55); AST (SGOT) 9 U/L (5-34); Albumin 3.8 g/dL (3.4-4.8); Alkaline Phosphatase 121 U/L (40-110); Anion Gap 18 mmol/L (10-20); BUN (Urea Nitrogen) 24 mg/dL (9.8-20.1); Bilirubin, Total 0.8 mg/dL (0.2-1.2); CK (CPK) 71 U/L (29-168); Calc. Creatinine Clearance 0 mL/min (70-130); Calcium 9.9 mg/dL (7.8-10.44); Carbon Dioxide 23 mmol/L (23-31); Chloride 102 mmol/L (98-107); Estimated GFR-MDRD 31; Globulin 3.9 g/dL (2.4-3.5); Glucose 295 mg/dL (83-110); Lipase 12 U/L (8-78); Protein, Total 7.7 g/dL (6.0-8.3); Sodium 139 mmol/L (136-145)
[2019-10-15] MEDS ORDERED: Vancomycin HCl 1.25 GM in Sodium Chloride 0.9% 250 ML 250 ML IVPB ONE (15:00)
[2019-10-15] MEDS ORDERED: Metoprolol Tartrate 5 MG/5 ML VIAL ONE (16:04)
[2019-10-15] MEDS ORDERED: Guaifenesin DM 100-10/5 ML UDCUP PO PRN (16:57)
[2019-10-15] MEDS ORDERED: Acetaminophen 325 MG TAB PO PRN ×2 (16:57→21:53)
[2019-10-15] MEDS ORDERED: Senokot S 8.6-50 MG TAB PO PRN ×2 (16:57→21:48)
[2019-10-15] MEDS ORDERED: Bisacodyl 10 MG SUPP PR PRN ×2 (16:57→21:54)
--- NOTE | 2019-10-15 17:09 | CT ---
CTA Angio Chest W WO Con History: Fever Comparison: Radiograph same day Findings: CT angiogram chest performed after the intravenous administration of contrast. 3-D renderin g provided. No proximal segmental pulmonary arterial filling defect. The main pulmonary trunk as well as of the r ight main pulmonary arteries are mildly dilated. Heart size mildly enlarged. Reflux of contrast within the suprahepatic IVC. There is circumferential wall thickening of the upper thoracic esophagus . Mild pulmonary venous congestion. No evidence for pneumonia. Scarring in the lung apices. No pneumoth orax. No significant effusion. Sternum and manubrium are intact. Thoracic spine is unremarkable. High-grade narrowing of the celiac trunk due to the median arcuate ligament. No acute displaced rib fracture. Advanced calcifications of the aorta Impression: 1. No proximal segmental pulmonary artery filling defect. 2. Abnormal dilatation and circumferential wall thickening of the upper thoracic esophagus for which a nonemergent upper endoscopy is recommended. This may reflect esophagitis versus mass. 3. Mild portal venous congestion. 4. Reflux contrast within the suprahepatic IVC suggesting component of diastolic dysfunction and incr eased right heart pressures. 5. Narrowed celiac trunk due to the median arcuate ligament with mild poststenotic dilatation.
[2019-10-15] MEDS ORDERED: Dextrose 50% Abboject 50 ML SYRINGE SLOW IVP PRN ×2 (17:14→21:56)
[2019-10-15] MEDS ORDERED: Dextrose 5% in Water 1,000 ML IV PRN ×2 (17:14→21:56)
[2019-10-15] MEDS ORDERED: HumaLOG 300 UNITS/3 ML VIAL SC PRN ×3 (17:14→21:48)
[2019-10-15 17:31] LABS: Lactic Acid 2.5 mmol/L (0.5-2.2)
--- NOTE | 2019-10-15 17:49 | HP ---
REASON FOR ADMISSION: Sepsis and pneumonia. HISTORY OF PRESENT ILLNESS: Please note majority of this history is obtained by talking to ER physician, Dr. Ellis, prior medical records and [facility] records as the patient is confused at present. The patient apparently was sent from [facility] for shortness of breath and a temperature of 102. She also had coughing spells there. The patient is confused and does not know exactly where she is at present. She follows some verbal stimuli. She is not oriented. On further workup here, the patient was found to have had left lung pneumonia. She also has mild acute kidney injury. PAST MEDICAL AND SURGICAL HISTORY: The patient has history of schizophrenia. She is a [facility] resident. Has history of legal blindness, hypertension, GERD, history of lupus, osteoporosis, diet-controlled diabetes, dyslipidemia, depression, dementia, and bipolar disorder. CURRENT MEDICATIONS: Per [facility] records, the patient is on; 1. Lactobacillus 1 capsule daily. 2. Aspirin 81 mg daily. 3. Ativan 0.5 mg p.o. twice daily. 4. Ditropan extended-release 5 mg daily. 5. Cholecalciferol 5000 units daily. 6. Colace 100 mg daily. 7. Ferrous sulfate 325 mg daily. 8. Fluphenazine depot shot intramuscularly 25 mg once monthly for schizophrenia. 9. Folic acid 400 mcg daily. 10. Lasix 20 mg daily p.r.n. 11. Memantine 10 mg twice daily. 12. Multivitamin 1 tablet once daily. 13. Potassium chloride extended release 10 mEq p.o. daily. 14. Remeron 15 mg p.o. nightly. 15. Risperdal 25 mg intramuscularly q.15 days. 16. Seroquel 200 mg nightly and 75 mg twice daily. 17. Trazodone 200 mg p.o. nightly. 18. Vitamin C 500 mg p.o. daily. ALLERGIES: ALLERGIC TO PENICILLIN. PERSONAL HISTORY: Per prior records, no history of tobacco, alcohol use, or illicit drug use. She lives at [facility]. FAMILY HISTORY: Cannot be obtained as the patient is not oriented. REVIEW OF SYSTEMS: Cannot be obtained as the patient is not oriented. PHYSICAL EXAMINATION: GENERAL: The patient is an 84-year-old female, who is currently not in any acute distress. VITAL SIGNS: Blood pressure 130/56, pulse 110 per minute, respiratory rate 16 per minute, saturating 98% on room air, and current temperature is 98.8 degrees. NECK: Supple. No elevated JVD. HEENT: Eyes; extraocular muscles intact. Pupils reacting to light. Oral cavity, mucous membranes are dry. No exudates or congestion. CARDIOVASCULAR: S1-S2 heard. Irregular rhythm. RESPIRATORY: Air entry 1+ bilateral. Scattered rhonchi plus no rales or wheezes. ABDOMEN: Soft. Bowel sounds heard. No tenderness, rigidity, or guarding. EXTREMITIES: No peripheral edema or calf tenderness. VASCULAR: Peripheral pulses 1+ bilateral. No ischemic ulcerations or gangrene. CENTRAL NERVOUS SYSTEM: No gross focal deficits noted. The patient is not oriented, but moves all extremities. PSYCHIATRIC: Cannot be assessed as the patient is not oriented at present. DIAGNOSTIC DATA: EKG done shows atrial fibrillation with RVR at 111 beats per minute. There are inferior wall and anteroseptal Q-waves. Chest x-ray done shows left lower lobe hazy opacity. LABORATORY DATA: White count of 9, H and H of 12 and 37, platelet count 152 with 67% neutrophils, and MCV is 94. BUN 24, creatinine 1.5, and serum glucose 295. Lactic acid 3.3. Albumin is 3.8. Lipase is 12. BNP 69. Influenza A and B antigens are negative. CLINICAL IMPRESSION AND PLAN: The patient will be admitted to medical floor. She has pneumonia, acute kidney injury, moderate dehydration, and acute metabolic encephalopathy with underlying schizophrenia. She will be on cefepime and Levaquin for now. Blood cultures have been obtained in the ER. She will be gently hydrated with normal saline at 100 mL per hour. The patient had brief run of atrial fibrillation with RVR and was given Lopressor 5 mg IV push in the ER, which has brought her rhythm back to 60 per minute now. I have confirmed her do not attempt to resuscitate status with one of her sisters, Ms. Lorraine Baird, number to reach her is [phone] or [phone], the last one is a cell number. We will continue Ms. Daniels on aspirin, vitamin B12, folic acid, ferrous sulfate, lactobacillus, Ativan, Namenda, Remeron, oxybutynin extended release, Seroquel, and trazodone, both of the doses as before. We will continue to closely monitor her on medical floor. We will also obtain echo with 2D Doppler for LV function and to rule out thrombus in view of underlying atrial fibrillation. Job ID: [id number]
[2019-10-15] MEDS: Sodium Chloride 0.9% 1,000 ML IV SCH (20:57)
[2019-10-15] MEDS ORDERED: Cefepime 1 GM in Sodium Chloride 0.9% 100 ML IVPB SCH (21:00)
[2019-10-15] MEDS ORDERED: Mirtazapine 15 MG TAB PO SCH ×2 (21:00→22:00)
[2019-10-15] MEDS ORDERED: traZODone HCl 50 MG TAB PO SCH ×2 (21:00→22:00)
[2019-10-15] MEDS ORDERED: Lorazepam 0.5 MG TAB PO SCH ×2 (21:00→21:45)
[2019-10-15] MEDS ORDERED: Famotidine 20 MG TAB PO SCH (21:00)
[2019-10-15 22:26] VITALS: BMI 29.4
[2019-10-16] MEDS: Guaifenesin DM 100-10/5 ML UDCUP PO PRN ×2 (00:07→19:30)
[2019-10-16] MEDS: Sodium Chloride 0.9% 1,000 ML IV SCH (05:12)
[2019-10-16] MEDS: HumaLOG 300 UNITS/3 ML VIAL SC PRN (06:28)
[2019-10-16] MEDS: Aspirin 81 mg Enteric Coated Tablet PO SCH (08:40)
[2019-10-16] MEDS: Cefepime 1 GM in Sodium Chloride 0.9% 100 ML IVPB SCH ×2 (08:41→19:27)
[2019-10-16] MEDS: Cyanocobalamin (Vitamin B-12) 1,000 MCG TAB PO SCH (08:41)
[2019-10-16] MEDS: Docusate 100 MG CAP PO SCH (08:41)
[2019-10-16] MEDS: Folic Acid 1 MG TAB PO SCH (08:42)
[2019-10-16] MEDS: Ferrous Sulfate 325 MG TAB PO SCH (08:42)
[2019-10-16] MEDS: Lorazepam 0.5 MG TAB PO SCH ×2 (08:42→19:26)
[2019-10-16] MEDS: Lactinex Tablet PO SCH (08:45)
[2019-10-16] MEDS ORDERED: Cyanocobalamin (Vitamin B-12) 1,000 MCG TAB PO SCH (09:00)
[2019-10-16] MEDS ORDERED: Docusate 100 MG CAP PO SCH (09:00)
[2019-10-16] MEDS ORDERED: Aspirin 81 mg Enteric Coated Tablet PO SCH (09:00)
[2019-10-16] MEDS ORDERED: Folic Acid 1 MG TAB PO SCH (09:00)
[2019-10-16] MEDS ORDERED: Oxybutynin ER 5 MG TAB PO SCH (09:00)
[2019-10-16] MEDS ORDERED: traZODone HCl 150 MG TAB PO SCH (09:00)
[2019-10-16] MEDS ORDERED: Ferrous Sulfate 325 MG TAB PO SCH (09:00)
[2019-10-16] MEDS ORDERED: Enoxaparin Sodium 40 MG/0.4 ML SYRINGE SC SCH ×2 (09:00)
[2019-10-16] MEDS ORDERED: Lactinex Tablet PO SCH (09:00)
[2019-10-16] MEDS: traZODone HCl 150 MG TAB PO SCH ×2 (09:12→14:57)
[2019-10-16] MEDS: Oxybutynin ER 5 MG TAB PO SCH (10:33)
[2019-10-16] MEDS ORDERED: Promethazine HCl 25 MG/ML VIAL IM/IV PRN (12:00)
--- NOTE | 2019-10-16 14:45 | PDOC.HOSPP ---
- Subjective Encounter Date: 10/16/19 Encounter Time: 09:00 Subjective: awake, not oriented, follows verbal stimuli - Objective Vital Signs & Weight: Vital Signs (12 hours) Temp Pulse Resp BP Pulse Ox 10/16/19 11:00 97.5 F L 59 L 20 136/73 97 10/16/19 08:40 95 10/16/19 08:00 98.1 F 60 20 138/79 95 10/16/19 04:00 97.9 F 68 18 136/76 94 L Weight Weight 177 lb I&O: 10/15/19 10/16/19 10/17/19 06:59 06:59 06:59 Intake Total 1218 Output Total 750 Balance 468 Result Diagrams: 10/15/19 14:11 10/15/19 14:11 Additional Labs: Accuchecks 10/16/19 10/16/19 10/15/19 11:55 06:28 20:29 POC Glucose 126 H 273 H 370 H Hospitalist ROS - Medication Medications: Active Medications Generic Name Dose Route Start Last Admin Trade Name Freq PRN Reason Stop Dose Admin Acidophilus 1 tab 10/16/19 09:00 10/16/19 08:45 Floranex PO 1 tab DAILY ARTUR Administration Aspirin 81 mg 10/16/19 09:00 10/16/19 08:40 Ecotrin PO 81 mg DAILY ARTUR Administration Cyanocobalamin 500 mcg 10/16/19 09:00 10/16/19 08:41 Vitamin B-12 PO 500 mcg DAILY ARTUR Administration Docusate Sodium 100 mg 10/16/19 09:00 10/16/19 08:41 Colace PO 100 mg DAILY ARTUR Administration Enoxaparin Sodium 40 mg 10/16/19 09:00 10/16/19 08:41 Lovenox SC 40 mg 0900 ARTUR Administration Ferrous Sulfate 325 mg 10/16/19 09:00 10/16/19 08:42 Feosol PO 325 mg DAILY ARTUR Administration Folic Acid 0.5 mg 10/16/19 09:00 10/16/19 08:42 Folvite PO 0.5 mg DAILY ARTUR Administration Guaifenesin/Dextromethorphan 15 ml 10/15/19 21:55 10/16/19 00:07 Robitussin Dm PO 15 ml Q4H PRN Administration Cough Cefepime HCl 1 gm/ Sodium 100 mls @ 200 mls/hr 10/16/19 09:00 10/16/19 08:41 Chloride IVPB 100 mls Q12HR ARTUR Administration Insulin Human Lispro 0 units 10/15/19 21:48 10/16/19 06:28 Humalog SC 6 unit .MODERATE SLIDING SC PRN Administration Moderate Correctional Scale Lorazepam 0.5 mg 10/16/19 09:00 10/16/19 08:42 Ativan PO 0.5 mg BID ARTUR Administration Memantine 10 mg 10/16/19 09:00 10/16/19 09:12 Namenda PO 10 mg BID ARTUR Administration Oxybutynin Chloride 5 mg 10/16/19 09:00 10/16/19 10:33 Ditropan Xl PO 5 mg DAILY ARTUR Administration Trazodone HCl 75 mg 10/16/19 09:00 10/16/19 09:12 Desyrel PO 75 mg 0900,1500 ARTUR Administration - Exam General Appearance: awake alert Eye: PERRL, anicteric sclera ENT: no oropharyngeal lesions, dry oral mucosa Neck: supple, no JVD Heart: RRR, no murmur Respiratory: no wheezes, no rales Gastrointestinal: soft, non-tender, non-distended, normal bowel sounds Extremities: no cyanosis, no edema Neurological: cranial nerve grossly intact, no focal deficits Hosp A/P (1) Moderate dehydration Code(s): E86.0 - DEHYDRATION Status: Acute (2) UTI (urinary tract infection) Status: Acute Qualifiers: Urinary tract infection type: acute cystitis Hematuria presence: without hematuria Qualified Code(s): N30.00 - Acute cystitis without hematuria (3) Acute bronchopneumonia Code(s): J18.0 - BRONCHOPNEUMONIA, UNSPECIFIED ORGANISM Status: Acute (4) Bipolar disorder Code(s): F31.9 - BIPOLAR DISORDER, UNSPECIFIED Status: Chronic Qualifiers: Active/Remission status: remission status unspecified Qualified Code(s): F31.9 - Bipolar disorder, unspecified (5) Dementia Code(s): F03.90 - UNSPECIFIED DEMENTIA WITHOUT BEHAVIORAL DISTURBANCE Status: Chronic (6) Diabetes mellitus Code(s): E11.9 - TYPE 2 DIABETES MELLITUS WITHOUT COMPLICATIONS Status: Chronic Qualifiers: Diabetes mellitus type: type 2 Diabetes mellitus halfway insulin use: without halfway use (7) Hypertension Code(s): I10 - ESSENTIAL (PRIMARY) HYPERTENSION Status: Chronic Qualifiers: Hypertension type: essential hypertension Qualified Code(s): I10 - Essential (primary) hypertension (8) Schizophrenia Code(s): F20.9 - SCHIZOPHRENIA, UNSPECIFIED Status: Chronic Qualifiers: Schizophrenia type: unspecified Qualified Code(s): F20.9 - Schizophrenia, unspecified (9) Acute kidney injury Code(s): N17.9 - ACUTE KIDNEY FAILURE, UNSPECIFIED Status: Resolved (10) Encephalopathy acute Code(s): G93.40 - ENCEPHALOPATHY, UNSPECIFIED Status: Resolved Plan: metabolic (11) Sepsis Code(s): A41.9 - SEPSIS, UNSPECIFIED ORGANISM Status: Acute Qualifiers: Sepsis type: Escherichia coli Qualified Code(s): A41.9 - Sepsis, unspecified organism - Plan Likely had a bout of aspiration pneumonitis at [facility] with sob, still has cough fever has resolved, prelim blood cs are -ve is on cefepime and levaquin urine cs are growing e.coli, await full sensitivities oral diet as tolerated, asp precautions continue home doses of seroquel, trazadone, remeron, oxybutynin, namenda, asp, folic acid and B12 nebs, oob to chair as tolerated hemostable
[2019-10-16] MEDS ORDERED: Lorazepam 2 MG/ML VIAL SLOW IVP SCH (18:45)
[2019-10-16] MEDS: traZODone HCl 50 MG TAB PO SCH (19:26)
[2019-10-16] MEDS: Famotidine 20 MG TAB PO SCH (19:27)
[2019-10-16] MEDS: Mirtazapine 15 MG TAB PO SCH (19:28)
[2019-10-17] MEDS: Guaifenesin DM 100-10/5 ML UDCUP PO PRN ×2 (00:42→09:00)
[2019-10-17 05:58] LABS: Anion Gap 12 mmol/L (10-20); BUN (Urea Nitrogen) 16 mg/dL (9.8-20.1); Calc. Creatinine Clearance 46 mL/min (70-130); Calcium 8.8 mg/dL (7.8-10.44); Carbon Dioxide 22 mmol/L (23-31); Chloride 109 mmol/L (98-107); Estimated GFR-MDRD 45; Glucose 152 mg/dL (83-110); Potassium 4.2 mmol/L (3.5-5.1); Sodium 139 mmol/L (136-145)
[2019-10-17 07:14] LABS: #Eosinphils 0.1 thou/uL (0.0-0.7); #Lymphocytes 2.3 thou/uL (1.20-3.40); #Monocytes 0.6 thou/uL (0.11-0.59); #Neutrophils 5.3 thou/uL (1.40-6.50); %Basophils 0.1 % (0.0-1.0); %Eosinophils 1.6 % (0.0-10.0); %Lymphocytes 27.4 % (21.0-51.0); %Monocytes 7.2 % (0.0-10.0); %Neutrophils 63.7 % (42.0-75.0); Mean Corpuscular HGB CONC 32.9 g/dL (32.0-36.0); Mean Corpuscular Hemoglobin 31.1 pg (27.0-31.0); Mean Corpuscular Volume 94.3 fL (78.0-98.0); Mean Platelet Volume 8.3 fL (7.4-10.4); Platelet Count 112 thou/uL (130-400); Platelet Morphology Comment Appears Decreased; RBC Distribution Width 12.3 % (11.5-14.5); Red Blood Cell (RBC) Count 3.53 mill/uL (4.20-5.40); White Blood Cell (WBC) Count 8.3 thou/uL (4.8-10.8)
[2019-10-17] MEDS: Aspirin 81 mg Enteric Coated Tablet PO SCH (08:57)
[2019-10-17] MEDS: Lactinex Tablet PO SCH (08:58)
[2019-10-17] MEDS: traZODone HCl 150 MG TAB PO SCH ×3 (08:58→14:20)
[2019-10-17] MEDS: Cyanocobalamin (Vitamin B-12) 1,000 MCG TAB PO SCH (08:59)
[2019-10-17] MEDS: Docusate 100 MG CAP PO SCH (08:59)
[2019-10-17] MEDS: Ferrous Sulfate 325 MG TAB PO SCH (08:59)
[2019-10-17] MEDS: Folic Acid 1 MG TAB PO SCH (08:59)
[2019-10-17] MEDS: Oxybutynin ER 5 MG TAB PO SCH (08:59)
[2019-10-17] MEDS: Cefepime 1 GM in Sodium Chloride 0.9% 100 ML IVPB SCH ×2 (09:00→20:50)
[2019-10-17] MEDS: Lorazepam 0.5 MG TAB PO SCH ×2 (09:18→20:51)
[2019-10-17] MEDS: Enoxaparin Sodium 30 MG/0.3 ML SYRINGE SC SCH (09:25)
[2019-10-17] MEDS: HumaLOG 300 UNITS/3 ML VIAL SC PRN (11:34)
[2019-10-17] MEDS ORDERED: Lorazepam 2 MG/ML VIAL SLOW IVP SCH (15:45)
[2019-10-17] MEDS: Famotidine 20 MG TAB PO SCH (20:51)
[2019-10-17] MEDS: Mirtazapine 15 MG TAB PO SCH (20:51)
[2019-10-17] MEDS: traZODone HCl 50 MG TAB PO SCH (20:51)
--- NOTE | 2019-10-17 21:44 | PDOC.HOSPP ---
- Subjective Encounter Date: 10/17/19 Encounter Time: 08:00 Subjective: still sleepy, not oriented, not in distress - Objective Vital Signs & Weight: Vital Signs (12 hours) Temp Pulse Resp BP Pulse Ox 10/17/19 20:00 97.7 F 61 15 135/73 93 L 10/17/19 11:00 98.0 F 59 L 20 153/81 H 93 L Weight Weight 177 lb I&O: 10/16/19 10/17/19 10/18/19 06:59 06:59 06:59 Intake Total 1218 350 600 Output Total 750 600 150 Balance 468 -250 450 Result Diagrams: 10/17/19 05:11 10/17/19 05:11 Additional Labs: Accuchecks 10/17/19 10/17/19 10/17/19 21:03 17:04 11:17 POC Glucose 143 H 143 H 250 H 10/17/19 05:10 POC Glucose 150 H Hospitalist ROS - Medication Medications: Active Medications Generic Name Dose Route Start Last Admin Trade Name Raulq PRN Reason Stop Dose Admin Acidophilus 1 tab 10/16/19 09:00 10/17/19 08:58 Floranex PO 1 tab DAILY ARTUR Administration Aspirin 81 mg 10/16/19 09:00 10/17/19 08:57 Ecotrin PO 81 mg DAILY ARTUR Administration Cyanocobalamin 500 mcg 10/16/19 09:00 10/17/19 08:59 Vitamin B-12 PO 500 mcg DAILY ARTUR Administration Docusate Sodium 100 mg 10/16/19 09:00 10/17/19 08:59 Colace PO 100 mg DAILY ARTUR Administration Enoxaparin Sodium 30 mg 10/17/19 09:00 10/17/19 09:25 Lovenox SC Not Given 899 ARTUR Famotidine 20 mg 10/16/19 21:00 10/17/19 20:51 Pepcid PO 20 mg Q24HR ARTUR Administration Ferrous Sulfate 325 mg 10/16/19 09:00 10/17/19 08:59 Feosol PO 325 mg DAILY ARTUR Administration Folic Acid 0.5 mg 10/16/19 09:00 10/17/19 08:59 Folvite PO 0.5 mg DAILY ARTUR Administration Guaifenesin/Dextromethorphan 15 ml 10/15/19 21:55 10/17/19 09:00 Robitussin Dm PO 15 ml Q4H PRN Administration Cough Levofloxacin 500 mg/ Device 100 mls @ 100 mls/hr 10/16/19 15:00 10/17/19 14: 13 IVPB 100 mls 1500 ARTUR Administration Insulin Human Lispro 0 units 10/15/19 21:48 10/17/19 11:34 Humalog SC 4 unit .MODERATE SLIDING SC PRN Administration Moderate Correctional Scale Lorazepam 0.5 mg 10/16/19 09:00 10/17/19 20:51 Ativan PO 0.5 mg BID ARTUR Administration Memantine 10 mg 10/16/19 09:00 10/17/19 20:51 Namenda PO 10 mg BID ARTUR Administration Mirtazapine 15 mg 10/16/19 21:00 10/17/19 20:51 Remeron PO 15 mg HS ARTUR Administration Oxybutynin Chloride 5 mg 10/16/19 09:00 10/17/19 08:59 Ditropan Xl PO 5 mg DAILY ARTUR Administration Quetiapine Fumarate 200 mg 10/16/19 21:00 10/17/19 20:51 Seroquel PO 200 mg HS ARTUR Administration Trazodone HCl 200 mg 10/16/19 21:00 10/17/19 20:51 Desyrel PO 200 mg HS ARTUR Administration - Exam General Appearance: awake alert Eye: PERRL, anicteric sclera ENT: no oropharyngeal lesions, dry oral mucosa Neck: supple, no JVD Heart: RRR, no murmur Respiratory: no wheezes, no rales Gastrointestinal: soft, non-tender, non-distended, normal bowel sounds Extremities: no cyanosis, no edema Neurological: cranial nerve grossly intact, no focal deficits Hosp A/P (1) Moderate dehydration Code(s): E86.0 - DEHYDRATION Status: Resolved (2) UTI (urinary tract infection) Status: Acute Qualifiers: Urinary tract infection type: acute cystitis Hematuria presence: without hematuria Qualified Code(s): N30.00 - Acute cystitis without hematuria (3) Acute bronchopneumonia Code(s): J18.0 - BRONCHOPNEUMONIA, UNSPECIFIED ORGANISM Status: Acute (4) Bipolar disorder Code(s): F31.9 - BIPOLAR DISORDER, UNSPECIFIED Status: Chronic Qualifiers: Active/Remission status: remission status unspecified Qualified Code(s): F31.9 - Bipolar disorder, unspecified (5) Dementia Code(s): F03.90 - UNSPECIFIED DEMENTIA WITHOUT BEHAVIORAL DISTURBANCE Status: Chronic (6) Diabetes mellitus Code(s): E11.9 - TYPE 2 DIABETES MELLITUS WITHOUT COMPLICATIONS Status: Chronic Qualifiers: Diabetes mellitus type: type 2 Diabetes mellitus assisted insulin use: without remote computer terminal operator use (7) Hypertension Code(s): I10 - ESSENTIAL (PRIMARY) HYPERTENSION Status: Chronic Qualifiers: Hypertension type: essential hypertension Qualified Code(s): I10 - Essential (primary) hypertension (8) Schizophrenia Code(s): F20.9 - SCHIZOPHRENIA, UNSPECIFIED Status: Chronic Qualifiers: Schizophrenia type: unspecified Qualified Code(s): F20.9 - Schizophrenia, unspecified (9) Acute kidney injury Code(s): N17.9 - ACUTE KIDNEY FAILURE, UNSPECIFIED Status: Resolved (10) Encephalopathy acute Code(s): G93.40 - ENCEPHALOPATHY, UNSPECIFIED Status: Resolved (11) Sepsis Code(s): A41.9 - SEPSIS, UNSPECIFIED ORGANISM Status: Acute Qualifiers: Sepsis type: Escherichia coli Qualified Code(s): A41.9 - Sepsis, unspecified organism - Plan Likely had a bout of aspiration pneumonitis at [facility] with sob, still has cough fever has resolved, blood cs are -ve is on levaquin urine cs are growing e.coli sensitive to all antibiotics oral diet as tolerated, asp precautions continue home doses of seroquel, trazadone, remeron, oxybutynin, namenda, asp, folic acid and B12 nebs, oob to chair as tolerated hemostable will increase dose of trazadone at 3pm to 100mg due to increased behaviour issues(shouting, screaming, restlessness) possible dc in am
[2019-10-18] MEDS: Lorazepam 0.5 MG TAB PO SCH ×2 (09:06→20:23)
[2019-10-18] MEDS: Cyanocobalamin (Vitamin B-12) 1,000 MCG TAB PO SCH (09:06)
[2019-10-18] MEDS: traZODone HCl 150 MG TAB PO SCH (09:06)
[2019-10-18] MEDS: Aspirin 81 mg Enteric Coated Tablet PO SCH (09:06)
[2019-10-18] MEDS: Enoxaparin Sodium 30 MG/0.3 ML SYRINGE SC SCH (09:07)
[2019-10-18] MEDS: Ferrous Sulfate 325 MG TAB PO SCH (09:07)
[2019-10-18] MEDS: Docusate 100 MG CAP PO SCH (09:07)
[2019-10-18] MEDS: Folic Acid 1 MG TAB PO SCH (09:07)
[2019-10-18] MEDS: Lactinex Tablet PO SCH (09:09)
[2019-10-18] MEDS: Oxybutynin ER 5 MG TAB PO SCH (09:09)
[2019-10-18] MEDS: Sodium Chloride 0.9% 1,000 ML IV SCH ×2 (11:48→20:22)
--- NOTE | 2019-10-18 13:29 | PDOC.HOSPP ---
- Subjective Encounter Date: 10/18/19 Encounter Time: 11:15 Subjective: awake, has her baby doll next to her says she is hungry but has not eaten breakfast, attempts to feed her were not succesfull per staff - Objective Vital Signs & Weight: Vital Signs (12 hours) Temp Pulse Resp BP Pulse Ox 10/18/19 08:30 92 L 10/18/19 08:00 99.0 F 81 18 128/77 92 L Weight Weight 177 lb I&O: 10/17/19 10/18/19 10/19/19 06:59 06:59 06:59 Intake Total 350 870 Output Total 600 600 Balance -250 270 Result Diagrams: 10/17/19 05:11 10/17/19 05:11 Additional Labs: Accuchecks 10/18/19 10/18/19 10/17/19 12:09 04:57 21:03 POC Glucose 163 H 167 H 143 H 10/17/19 17:04 POC Glucose 143 H Hospitalist ROS - Medication Medications: Active Medications Generic Name Dose Route Start Last Admin Trade Name Yvon PRN Reason Stop Dose Admin Acidophilus 1 tab 10/16/19 09:00 10/18/19 09:09 Floranex PO 1 tab DAILY ARTUR Administration Aspirin 81 mg 10/16/19 09:00 10/18/19 09:06 Ecotrin PO 81 mg DAILY ARTUR Administration Cyanocobalamin 500 mcg 10/16/19 09:00 10/18/19 09:06 Vitamin B-12 PO 500 mcg DAILY ARTUR Administration Docusate Sodium 100 mg 10/16/19 09:00 10/18/19 09:07 Colace PO 100 mg DAILY ARTUR Administration Enoxaparin Sodium 30 mg 10/17/19 09:00 10/18/19 09:07 Lovenox SC 30 mg 0900 ARTUR Administration Famotidine 20 mg 10/16/19 21:00 10/17/19 20:51 Pepcid PO 20 mg Q24HR ARTUR Administration Ferrous Sulfate 325 mg 10/16/19 09:00 10/18/19 09:07 Feosol PO 325 mg DAILY ARTUR Administration Folic Acid 0.5 mg 10/16/19 09:00 10/18/19 09:07 Folvite PO 0.5 mg DAILY ARTUR Administration Guaifenesin/Dextromethorphan 15 ml 10/15/19 21:55 10/17/19 09:00 Robitussin Dm PO 15 ml Q4H PRN Administration Cough Levofloxacin 500 mg/ Device 100 mls @ 100 mls/hr 10/16/19 15:00 10/17/19 14: 13 IVPB 100 mls 1500 ARTUR Administration Sodium Chloride 1,000 mls @ 100 mls/hr 10/18/19 10:45 10/18/19 11:48 Normal Saline 0.9% IV 10/19/19 06:44 1,000 mls .Q10H ARTUR Administration Insulin Human Lispro 0 units 10/15/19 21:48 10/17/19 11:34 Humalog SC 4 unit .MODERATE SLIDING SC PRN Administration Moderate Correctional Scale Lorazepam 0.5 mg 10/16/19 09:00 10/18/19 09:06 Ativan PO 0.5 mg BID ARTUR Administration Memantine 10 mg 10/16/19 09:00 10/18/19 09:07 Namenda PO 10 mg BID ARTUR Administration Mirtazapine 15 mg 10/16/19 21:00 10/17/19 20:51 Remeron PO 15 mg HS ARTUR Administration Oxybutynin Chloride 5 mg 10/16/19 09:00 10/18/19 09:09 Ditropan Xl PO 5 mg DAILY ARTUR Administration Quetiapine Fumarate 200 mg 10/16/19 21:00 10/17/19 20:51 Seroquel PO 200 mg HS ARTUR Administration Trazodone HCl 200 mg 10/16/19 21:00 10/17/19 20:51 Desyrel PO 200 mg HS ARTUR Administration Trazodone HCl 75 mg 10/18/19 09:00 10/18/19 09:06 Desyrel PO 75 mg 0900 ARTUR Administration - Exam General Appearance: awake alert Eye: PERRL, anicteric sclera ENT: no oropharyngeal lesions, dry oral mucosa Neck: supple, no JVD Heart: RRR, no murmur Respiratory: no wheezes, no rales Gastrointestinal: soft, non-tender, non-distended, normal bowel sounds Extremities: no cyanosis, no edema Neurological: cranial nerve grossly intact, no focal deficits Hosp A/P (1) Moderate dehydration Code(s): E86.0 - DEHYDRATION Status: Resolved (2) UTI (urinary tract infection) Status: Acute Qualifiers: Urinary tract infection type: acute cystitis Hematuria presence: without hematuria Qualified Code(s): N30.00 - Acute cystitis without hematuria (3) Acute bronchopneumonia Code(s): J18.0 - BRONCHOPNEUMONIA, UNSPECIFIED ORGANISM Status: Acute (4) Bipolar disorder Code(s): F31.9 - BIPOLAR DISORDER, UNSPECIFIED Status: Chronic Qualifiers: Active/Remission status: remission status unspecified Qualified Code(s): F31.9 - Bipolar disorder, unspecified (5) Dementia Code(s): F03.90 - UNSPECIFIED DEMENTIA WITHOUT BEHAVIORAL DISTURBANCE Status: Chronic (6) Diabetes mellitus Code(s): E11.9 - TYPE 2 DIABETES MELLITUS WITHOUT COMPLICATIONS Status: Chronic Qualifiers: Diabetes mellitus type: type 2 Diabetes mellitus leak detector insulin use: without leak detector use (7) Hypertension Code(s): I10 - ESSENTIAL (PRIMARY) HYPERTENSION Status: Chronic Qualifiers: Hypertension type: essential hypertension Qualified Code(s): I10 - Essential (primary) hypertension (8) Schizophrenia Code(s): F20.9 - SCHIZOPHRENIA, UNSPECIFIED Status: Chronic Qualifiers: Schizophrenia type: unspecified Qualified Code(s): F20.9 - Schizophrenia, unspecified (9) Acute kidney injury Code(s): N17.9 - ACUTE KIDNEY FAILURE, UNSPECIFIED Status: Resolved (10) Encephalopathy acute Code(s): G93.40 - ENCEPHALOPATHY, UNSPECIFIED Status: Resolved (11) Sepsis Code(s): A41.9 - SEPSIS, UNSPECIFIED ORGANISM Status: Acute Qualifiers: Sepsis type: Escherichia coli Qualified Code(s): A41.9 - Sepsis, unspecified organism - Plan Likely had a bout of aspiration pneumonitis at [facility] with sob, still has cough fever has resolved, blood cs are -ve is on levaquin urine cs are growing e.coli sensitive to all antibiotics oral diet as tolerated, asp precautions, poor appetite, encourage po intake, ensure 1 can tid continue home doses of seroquel, trazadone, remeron, oxybutynin, namenda, asp, folic acid and B12 nebs, oob to chair as tolerated hemostable increase dose of trazadone at 3pm to 100mg due to increased behaviour issues( shouting, screaming, restlessness) urine is high colored this am, will give 2 lts of fluids, needs to consume more orally with repeated prompting
[2019-10-18] MEDS ORDERED: traZODone HCl 50 MG TAB PO SCH (15:00)
[2019-10-18] MEDS: HumaLOG 300 UNITS/3 ML VIAL SC PRN (17:18)
[2019-10-18] MEDS: traZODone HCl 50 MG TAB PO SCH (20:22)
[2019-10-18] MEDS: Famotidine 20 MG TAB PO SCH (20:23)
[2019-10-18] MEDS: Mirtazapine 15 MG TAB PO SCH (20:23)
[2019-10-19 08:16] VITALS: BP 115/65; TEMP 97.7
[2019-10-19] MEDS: Enoxaparin Sodium 30 MG/0.3 ML SYRINGE SC SCH (09:18)
[2019-10-19] MEDS: Aspirin 81 mg Enteric Coated Tablet PO SCH (09:21)
[2019-10-19] MEDS: Folic Acid 1 MG TAB PO SCH (09:22)
[2019-10-19] MEDS: Ferrous Sulfate 325 MG TAB PO SCH (09:22)
[2019-10-19] MEDS: Cyanocobalamin (Vitamin B-12) 1,000 MCG TAB PO SCH (09:22)
[2019-10-19] MEDS: traZODone HCl 150 MG TAB PO SCH (09:23)
[2019-10-19] MEDS: Oxybutynin ER 5 MG TAB PO SCH (09:23)
[2019-10-19] MEDS: Lactinex Tablet PO SCH (09:23)
[2019-10-19] MEDS: Lorazepam 0.5 MG TAB PO SCH (09:23)
[2019-10-19] MEDS: Docusate 100 MG CAP PO SCH (09:24)
--- NOTE | 2019-10-19 16:34 | DIS ---
DATE OF ADMISSION: 10/15/2019 DATE OF DISCHARGE: 10/19/2019 DISCHARGE DISPOSITION: [place]. PRIMARY DISCHARGE DIAGNOSES: Sepsis, urinary tract infection, moderate dehydration, acute bronchitis likely due to aspiration episode, acute encephalopathy on top of her history of schizophrenia. SECONDARY DISCHARGE DIAGNOSES: Chronic history of schizophrenia, , diabetes mellitus, bipolar disorder, dementia. PROCEDURES DONE DURING HOSPITALIZATION: The patient has had CT angio chest done, which showed no evidence of PE. There is incidental findings in the thoracic esophagus with circumferential wall thickening suggestive of either esophagitis versus mass. Echo with 2D Doppler showed EF of 55% to 60%. Blood cultures x2, no growth. Urine culture grew E coli sensitive to all antibiotics. Influenza A and B antigens were negative. Hemoglobin and hematocrit 11 and 33, platelet count 112, MCV is 94. BUN and creatinine 16 and 1.1 on the . BNP 69. One set of troponin negative. Initial BUN and creatinine were 24 and 1.5. DISCHARGE MEDICATIONS: The patient to continue; 1. Levaquin for another four days 500 mg daily. 2. Aspirin 81 mg daily. 3. Vitamin C 500 mg p.o. daily. 4. Vitamin B12 of 500 mcg p.o. daily. 5. Vitamin D3 of 5000 units p.o. daily. 6. Colace 100 mg p.o. daily. 7. Ferrous sulfate 325 mg p.o. daily. 8. Fluphenazine 25 mg intramuscular q.28 days. 9. Folic acid 0.4 mg daily. 10. Lasix 20 mg daily p.r.n. 11. Lactobacillus one capsule daily. 12. Lorazepam 0.5 mg p.o. twice daily. 13. Namenda 10 mg p.o. twice daily. 14. Remeron 15 mg p.o. at bedtime. 15. Multivitamin one tablet once daily. 16. Seroquel 200 mg p.o. at bedtime. 17. Risperdal 25 mg intramuscular q.15 days. 18. Trazodone 200 mg p.o. at bedtime and 75 mg p.o. twice daily. 19. DuoNeb q.6 hourly p.r.n. 20. Ditropan extended release 5 mg p.o. daily. ALLERGIES: ALLERGIC TO PENICILLIN AND STRAWBERRY. DISCHARGE PLAN: The patient to follow up with her primary care physician, Dr. Vo in 1 week BRIEF COURSE DURING HOSPITALIZATION: The patient initially was sent over from [place] as she was more confused than normal and had coughing spells. Her clinical exam and lab were consistent with UTI, sepsis, possible aspiration with bronchitis. Pancultures were obtained and the patient was placed on broad-spectrum antibiotics on medical floor. She has underlying schizophrenia and dementia, and the patient was not oriented to give accurate description of her symptoms. Blood cultures were negative. Urine culture grew E coli sensitive to all organisms. A CT angio chest done showed no evidence of infiltrate or PE. She has remained hemodynamically stable all through her stay. The patient has had episodes of emotional outburst off and on, especially between 3 p.m. and 5 p.m. She is tolerating oral solid diet prior to discharge. A total of 35 minutes was spent on discharge plan. Please note, I have seen and examined the patient on the day of discharge. Job ID: [id number]
--- NOTE | 2019-10-20 16:14 | EKG ---
Test Reason : Blood Pressure : / mmHG Vent. Rate : 111 BPM Atrial Rate : 117 BPM P-R Int : 000 ms QRS Dur : 124 ms QT Int : 374 ms P-R-T Axes : 000 -59 100 degrees QTc Int : 508 ms Atrial fibrillation with rapid ventricular response Left axis deviation Possible Inferior infarct , age undetermined Anterolateral infarct , age undetermined Abnormal ECG Confirmed by FANNY SIERRA, PERCY ([id number]), videotape editor CHAD LOUIS ([id number]) on 10/20/2019 4:12:50 PM Referred By: Confirmed By:PERCY ESCOBEDO MD
== END 2019-10-19 10:23 | DRG 871 ==
LOC: ERS 13:22 → T4-B 18:47
PROVIDERS: ADMIT Internal Medicine; ATTEND Internal Medicine
DX: A41.9 Sepsis, unspecified organism (principal); G93.41 Metabolic encephalopathy; J69.0 Pneumonitis due to inhalation of food and vomit; N17.9 Acute kidney failure, unspecified; N30.00 Acute cystitis without hematuria; J20.9 Acute bronchitis, unspecified; F20.9 Schizophrenia, unspecified; E11.9 Type 2 diabetes mellitus without complications; F03.90 Unspecified dementia, unspecified severity, without behavioral disturbance, psychotic disturbance, mood disturbance, and anxiety; B96.20 Unspecified Escherichia coli [E. coli] as the cause of diseases classified elsewhere; E78.5 Hyperlipidemia, unspecified; K21.9 Gastro-esophageal reflux disease without esophagitis; E86.0 Dehydration; I10 Essential (primary) hypertension; Z88.0 Allergy status to penicillin; Z91.02 Food additives allergy status
CPT/HCPCS: 36415; 36416; 71045; 71275; 80048; 80053; 82550; 83605; 83690; 83880; 85025; 85379; 87040; 87077; 87086; 87186; 87804; 93005; 93306; 94760; A4353; J0692; J1650; J1956; J2060; J3370; J3490; J7050; Q9967